=== PATIENT | male | born 1990 | race Caucasian/White ===

== ENCOUNTER 2021-10-20 22:47 | Emergency (ER) | payer MEDICARE, OTHER | END 2021-10-20 23:54 | disposition left against medical advice (07) | LOC: ER1 22:47 | DX: Z53.21 Procedure and treatment not carried out due to patient leaving prior to being seen by health care provider (principal) ==

== ENCOUNTER 2021-10-23 09:06 | Emergency (ER) | payer MEDICARE, OTHER ==
[2021-10-23] MEDS ORDERED: NAPROSYN500 MG PO (12:15)
== END 2021-10-23 12:30 | disposition home or self-care (01) ==
LOC: ER1 09:06
DX: S00.31XA Abrasion of nose, initial encounter (principal); R07.89 Other chest pain; F17.200 Nicotine dependence, unspecified, uncomplicated; W20.8XXA Other cause of strike by thrown, projected or falling object, initial encounter
CPT/HCPCS: 71111; 93005; 99283